=== PATIENT | female | born 1965 | race Caucasian/White ===

== ENCOUNTER 2020-10-13 14:06 | Outpatient (REF) | payer OTHER, SELFPAY ==
[2020-10-13 15:04] LABS: Prothrombin Time 11.9 SEC (10.8-13.0)
[2020-10-13 15:42] LABS: Erythrocyte Sedimentation Rate 12 MM/HR (0-20)
[2020-10-14 04:35] LABS: Syphilis Screen Nonreactive (Nonreactive)
[2020-10-14 04:45] LABS: HIV AB/AG Nonreactive (Nonreactive); HIV Num 1 0.07 S/CO (0.00-0.99)
[2020-10-14 10:07] LABS: Lyme Abs Screen <0.90 index
[2020-10-14 13:21] LABS: Anti Nuclear Antibody Screen NEGATIVE (NEGATIVE)
== END 2020-10-13 14:07 | disposition home or self-care (01) ==
LOC: HO.LAB 14:06
PROVIDERS: PCP Internal Medicine; Visit Provider Psychiatry & Neurology Neurology
DX: G37.9 Demyelinating disease of central nervous system, unspecified (principal)
CPT/HCPCS: 36415; 85610; 85652; 86038; 86039; 86618; 86780; 87389

== ENCOUNTER 2020-10-20 08:37 | Day surgery (SDC) | payer OTHER, SELFPAY ==
--- NOTE | ~2020-10-20 | FL_ITS ---
EXAMINATION: XR LUMBAR PUNCTURE CLINICAL INFORMATION: Demyelinating disease. COMPARISON: None TECHNIQUE: Informed consent was obtained from the patient prior to the procedure. During this process, the procedure and potential alternatives were explained along with the intended outcome and benefits. The risks of the procedure, including the possibility of an unsuccessful procedure as well as the risk of not doing the procedure were discussed. The patient was given the opportunity to ask any questions regarding the procedure and appeared competent to make medical decisions. A signed consent form which documents this discussion was placed in the medical record. A timeout procedure was performed. FINDINGS: The patient was brought to the fluoroscopic room and placed in the prone position. Fluoroscopic images of the lumbar spine were obtained to localize the L3-L4 level. The patient's back was prepped and draped in the standard sterile fashion. 5 ml of 1% preservative free lidocaine was used to obtain local anesthesia the skin and deeper tissues. A 22-gauge spinal needle was passed through the skin into the spinal canal, until clear CSF flowed. There was an opening pressure of 15 cm. Approximately 12 cc of clear CSF was collected and sent for requested laboratory analysis. Initial tube was blood-tinged due to small amount of bleeding during the access. The spinal needle was removed and a sterile dressing applied. SPECIMEN: 12 ml of clear CSF. Specimens were appropriately labeled and sent to the laboratory for evaluation. COMPLICATIONS: The patient tolerated procedure well without complications. FLUOROSCOPY TIME: 0.3 minutes DOSE AREA PRODUCT: 3.3935 Gy-cm2 (oneil-centimeter squared) FL/FL guided lumbar puncture LP IMPRESSION: Lumbar puncture with opening pressure of 15 cm. Clear CSF collected.
[2020-10-20 09:31] VITALS: BMI 29.9
[2020-10-20 09:55] LABS: MANUAL DIFF FLAG NO
[2020-10-20 10:14] LABS: Basophils Percent Auto 0.4 % (0-2); Eosinophils Absolute Auto 0.1 X10*3/uL (0.0-0.4); Eosinophils Percent Auto 1.6 % (0-4); Hematocrit 43.3 % (37-47); Hemoglobin 13.2 g/dl (12.0-16.0); Imm Gran Abs Auto 0.03 X10*3/uL (0.00-0.03); Imm Gran Pct Auto 0.4 % (0.0-0.4); Lymphocytes Absolute Auto 1.4 X10*3/uL (1.2-4.9); Lymphocytes Percent Auto 18.8 % (20-40); Mean Corpuscular HGB Conc 30.5 g/dl (31.0-35.0); Mean Corpuscular Hemoglobin 26.6 pg (27.0-33.0); Mean Corpuscular Volume 87.3 fL (80-98); Mean Platelet Volume 14.2 fL (9.4-12.3); Monocytes Absolute Auto 0.5 X10*3/uL (0.1-1.2); Monocytes Percent Auto 7.2 % (2-11); Neutrophils Absolute Auto 5.3 X10*3/uL (2.0-8.3); Neutrophils Percent Auto 71.6 % (45-73); Platelet Count 142 X10*3/uL (160-400); Red Blood Count 4.96 X10*6/uL (4.20-5.50); Red Cell Distribution Width 13.1 % (11.0-16.0); White Blood Count 7.4 X10*3/uL (4.8-10.8)
[2020-10-20 12:13] VITALS: BP 137/58; PULSE 67; RESP 18; O2SAT 98
[2020-10-20 12:43] VITALS: BP 145/59; PULSE 69; RESP 18; O2SAT 99
[2020-10-20 12:57] LABS: CSF Appearance Hazy
[2020-10-20 12:58] LABS: CSF Tube # 2
[2020-10-20 13:10] LABS: Glucose CSF 62 mg/dL; Total Protein CSF 34.9 mg/dL (15-45)
[2020-10-20 13:13] VITALS: BP 131/56; PULSE 69; RESP 18; O2SAT 98
[2020-10-20 13:32] LABS: Appearance CSF CLEAR
[2020-10-20 13:33] LABS: CSF Monos 0 %; CSF Tube # 4; Color CSF COLORLESS; Lymphocytes CSF 50 %; Neutrophils CSF 50 %; Red Blood Cell CSF 300 MM*3; White Blood Cell CSF 2 MM*3
[2020-10-20 13:34] LABS: CSF Other Cells % 0 %; Oligoclonal Serum Yes
[2020-10-20 13:51] VITALS: BP 139/62; PULSE 70; RESP 16; O2SAT 97
[2020-10-20 14:29] VITALS: BP 131/59; PULSE 71; RESP 20; O2SAT 98
[2020-10-23 22:11] LABS: Albumin 3.4 g/dL (3.5-5.2); Albumin, CSF 23.7 mg/dL (8.0-42.0); IgG 1020 mg/dL (600-1640); IgG Synthesis Rate -3.1 mg/24 h (-9.9-3.3); IgG, CSF 3.3 mg/dL (0.8-7.7)
== END 2020-10-20 14:42 | disposition home or self-care (01) ==
LOC: HO.SSS 08:37
PROVIDERS: Psychiatry & Neurology Neurology; Radiology Diagnostic Radiology; PCP Internal Medicine; Visit Provider Radiology Diagnostic Radiology
PROC: 009U3ZZ Drainage of Spinal Canal, Percutaneous Approach (ICD-10-PCS; CPT 62270; principal; 2020-10-20 10:00)
DX: G37.9 Demyelinating disease of central nervous system, unspecified (principal); G93.40 Encephalopathy, unspecified; F32.9 Major depressive disorder, single episode, unspecified; E66.9 Obesity, unspecified
CPT/HCPCS: 36415; 62328; 82042; 82945; 83916; 84157; 85025; 87015; 87070; 87205; 89051